=== PATIENT | male | born 1950 | race African-American/Black ===

== ENCOUNTER 2018-09-15 20:20 | Emergency (ER) | payer OTHER ==
[~2018-09-15] VITALS: Ht 180.3 cm; Wt 77.2 kg
[2018-09-16 00:06] LABS: CLARITY URINE CLEAR (CLEAR); COLOR URINE YELLOW (YELLOW); KETONES URINE 2+ (NEGATIVE); LEUKOCYTE ESTERASE URINE NEGATIVE (NEGATIVE); NITRITE URINE NEGATIVE (NEGATIVE); OCCULT BLOOD URINE 2+ (NEGATIVE); PROTEIN URINE 1+ (NEGATIVE); UROBILINOGEN URINE 0.2 E.U./dL (0.2-1.0)
[2018-09-16 00:08] LABS: HEMATOCRIT. 42.6 % (42.0-52.0); HEMOGLOBIN. 14.5 g/dL (14.0-18.0); MEAN CORPUSCULAR HEMOGLOBIN 33.9 pg (28.0-32.0); MEAN CORPUSCULAR VOLUME 99.1 fL (80.0-94.0); MEAN PLATELET VOLUME 8.5 fl (7.4-10.4); PLATELET 239 x1000/uL (130-400); RED BLOOD CELL COUNT 4.29 mill/uL (4.7-6.1); RED CELL DISTRIBUTION WIDTH 13.9 % (11.6-14.6)
[2018-09-16 00:13] LABS: CHLORIDE 105 mEq/L (98-107)
[2018-09-16 00:21] LABS: ETHANOL BLOOD < 10 mg/dL
[2018-09-16 00:27] LABS: *AMPHETAMINES SCREEN URINE NEGATIVE (NEGATIVE)
[2018-09-16 00:28] LABS: *BARBITURATES SCREEN URINE NEGATIVE (NEGATIVE); *BENZODIAZEPINES SCREEN URINE NEGATIVE (NEGATIVE); *COCAINE SCREEN URINE NEGATIVE (NEGATIVE); CANNABINOID URINE SCREEN NEGATIVE (NEGATIVE); METHADONE URINE SCREEN NEGATIVE (NEGATIVE); OPIATES URINE SCREEN PRESUMTIVE POSITIVE (NEGATIVE); PHENCYCLIDINE URINE SCREEN NEGATIVE (NEGATIVE)
[2018-09-16] MEDS ORDERED: POTASSIUM CHLORIDE 20MEQ TABLET SR PO ONE (01:00)
[2018-09-16 02:02] LABS: PLATELET ESTIMATE NORMAL
[2018-09-16] MEDS ORDERED: HYDRALAZINE 20MG/ML VIAL IV ONE (10:45)
[2018-09-16 11:43] VITALS: BP 185/99
== END 2018-09-16 12:00 | disposition short-term general hospital (02) ==
LOC: ER 20:20 → EDBD 20:20 → ER 09-16 12:00 → CANBEDREQ 09-16 12:50
DX: R41.82 Altered mental status, unspecified (principal); G83.24 Monoplegia of upper limb affecting left nondominant side; R03.0 Elevated blood-pressure reading, without diagnosis of hypertension; R26.81 Unsteadiness on feet
CPT/HCPCS: 36415; 70450; 80053; 80305; 80307; 80329; 81003; 82962; 85025; 96374; 99285; G0482; J0360; 99284